=== PATIENT | female | born 1940 | race Caucasian/White ===

== ENCOUNTER → 2022-03-31 15:40 | Outpatient (CLI) | payer MEDICARE, OTHER, SELFPAY ==
[2022-03-31 19:53] LABS: Thyroid Stimulating Hormone 2.04 uIU/mL (0.465-4.68)
[2022-03-31 21:32] LABS: Free T4 (Free Thyroxine) 1.25 ng/dl (0.78-2.19)
== END ==
PROVIDERS: PCP Family Medicine; Visit Provider Family Medicine
DX: E03.9 Hypothyroidism, unspecified (principal)
CPT/HCPCS: 84439; 84443